=== PATIENT | female | born 1945 | race Caucasian/White ===

== ENCOUNTER → 2017-08-10 10:22 | Outpatient (CLI) | payer MEDICARE ==
[2013-12-23 06:45] VITALS: BMI 26.5
[~2017-08-10 10:22] MED LIST: BAYER CHEWABLE81 MG PO; ESTRACE2 MG PO; METOPROLOL TART50 MG PO; SYNTHROID25 MCG PO; VITAMIN D31000 UNIT PO; VITAMIN E1000 UNIT PO; ZETIA10 MG PO
[2017-08-20 12:32] VITALS: BMI 27.5
== END | disposition home or self-care (01) ==
LOC: D.MRI 10:22
DX: R51 Headache (principal)

== ENCOUNTER → 2017-08-14 08:05 | Outpatient (CLI) | payer MEDICARE ==
[2013-12-23 06:45] VITALS: BMI 26.5
[2017-08-20 12:32] VITALS: BMI 27.5
== END | disposition home or self-care (01) ==
LOC: D.NM 08:00
DX: K29.40 Chronic atrophic gastritis without bleeding (principal)

== ENCOUNTER 2017-08-20 02:41 | Observation (INO) | payer MEDICARE ==
[~2017-08-20] VITALS: Ht 157.5 cm; Wt 68.2 kg
[~2017-08-20 02:41] MED LIST changes: -BAYER CHEWABLE81 MG PO; -METOPROLOL TART50 MG PO; -SYNTHROID25 MCG PO; -ZETIA10 MG PO
[2017-08-20 02:59] LABS: APPEARANCE CLEAR (CLEAR); BILIRUBIN NEGATIVE (NEGATIVE); COLOR YELLOW (YELLOW); GLUCOSE NEGATIVE (NEGATIVE); KETONE NEGATIVE (NEGATIVE); NITRITE NEGATIVE (NEGATIVE); PROTEIN NEGATIVE (NEGATIVE); SPECIFIC GRAVITY 1.015 (1.005-1.020); UROBILINOGEN NORMAL (NORMAL)
[2017-08-20 03:41] LABS: BASOPHILS 0.5 % (0-2); EOSINOPHILS 4.7 % (0-7); HEMOGLOBIN 13.3 g/dL (12-16); IMMATURE GRANULOCYTES 0.2 % (0-5); LYMPHOCYTES 37.7 % (15-50); MCH 29.2 pg (26.0-34.0); MCHC 34.1 g/dL (31.0-37.0); MCV 85.7 fL (80.0-100.0); MEAN PLATELET VOLUME 10.6 fL (7.4-10.4); MONOCYTES 12.6 % (2-11); NEUTROPHILS 44.3 % (40-80); PLATELET COUNT 193 10x3/uL (130-400); RBC 4.55 10x6/uL (4.00-5.40); RDW 12.5 % (11.5-14.5); WBC 4.1 10x3/uL (4.8-10.8)
[2017-08-20 04:04] LABS: ALBUMIN 3.7 g/dL (3.4-5.0); ALKALINE PHOSPHATASE 82 U/L (46-116); ALT (SGPT) 20 U/L (10-68); BILIRUBIN - TOTAL 0.37 mg/dL (0.2-1.3); CALC OSMOLALITY 278 mosm/kg (275-300); CALCIUM 9.7 mg/dL (8.5-10.1); CARBON DIOXIDE 24.3 mmol/L (21.0-32.0); CHLORIDE - SERUM 103 mmol/L (98-107); CREATININE - SERUM 0.8 mg/dL (0.6-1.3); GLUCOSE 110 mg/dL (74-106); LIPASE 111 U/L (73-393); POTASSIUM - SERUM 3.7 mmol/L (3.5-5.1); PRO BNP 62 pg/mL (0-125); PROTEIN - SERUM 7.6 g/dL (6.4-8.2); SODIUM 139 mmol/L (136-145); UREA NITROGEN 12 mg/dL (7-18); eGFR NON AFRICAN AMERICAN 75 mL/min (90-120)
[2017-08-20 04:06] LABS: TROPONIN-I < 0.017 ng/mL (0.000-0.060)
[2017-08-20] MEDS ORDERED: ZETIA10 MG PO (05:29)
--- NOTE | 2017-08-20 05:30 | NUR ---
PT ARRIVED ON UNIT VIA STRETCHER, ESCORTED BY ER NURSE. ORIENTED TO ROOM AND CALL LIGHT. VITALS STABLE. TELEMETRY PLACED PER ORDER, AND PT READING SR AT THIS ASSESSMENT. SIDE RAILS UP X2 FOR SAFETY. CALL LIGHT WITHIN REACH. PT GIVEN COFFEE PER REQUEST.
[2017-08-20 05:44] VITALS: BP 136/67; BMI 27.5
--- NOTE | 2017-08-20 05:54 | NUR ---
ADMISSION ASSESMENT, HISTORY, AND MEDICATION RECONCILLIATION COMPLETE PER FLOWSHEET.
--- NOTE | 2017-08-20 07:48 | NUR ---
REC'D SITTING UP IN BED. ALERT AND ORIENTED X4. DENIED PAIN AT THIS TIME. DENIED NEEDS AT THIS TIME. INSTRUCTED TO CALL IF NEEDED ANYTHING,VERBALIZED UNDERSTANDING. BED LOW, LOCKED, CALL LIGHT IN REACH. WILL CONT TO MONITOR.
[2017-08-20 09:26] VITALS: BP 147/75
--- NOTE | 2017-08-20 11:03 | NUR ---
DENIES ANY NEEDS AT THIS TIME.
[2017-08-20 12:32] VITALS: Ht 157.5 cm; Wt 68.2 kg
[2017-08-20 13:11] VITALS: BP 148/73
[2017-08-20 16:54] VITALS: BP 159/82
--- NOTE | 2017-08-20 19:11 | NUR ---
RECEIVED REPORT COMPLETED FROM DAY SHIFT NURSE.
[2017-08-20 20:00] VITALS: BP 128/64
[2017-08-20 22:01] VITALS: BP 128/64
--- NOTE | 2017-08-20 22:27 | NUR ---
EDUCATED PT TO USE CALL LIGHT WHEN NEED HELP, PT UNDERSTAND THE EDUCATION.
--- NOTE | 2017-08-21 02:10 | NUR ---
REST IN BED, EYE CLOSE, CALL LIGHT IN REACH.
--- NOTE | 2017-08-21 03:30 | NUR ---
ASSESSED, PT IS ASLEEP WITH EASY RESPIRATIONS, NO DISTRESS NOTED. THE BED IS LOW, RAILS UP X'S 2 WITH THE CALL LIGHT AT HAND.
[2017-08-21 04:00] VITALS: BP 102/54
--- NOTE | 2017-08-21 07:35 | NUR ---
REC'D SITTING UP IN BED. ALERT AND ORIENTED X4. DENIED PAIN AT THIS TIME. REPORTED HAVING A GOOD NIGHT. DENIED NEEDS AT THIS TIME. INSTRUCTED TO CALL IF NEEDED ANYTHING, VERBALIZED UNDERSTANDING. NO DISTRESS NOTED. BED LOW, LOCKED, CALL LIGHT IN REACH.
[2017-08-21 09:36] VITALS: BP 125/63
--- NOTE | 2017-08-21 10:24 | NUR ---
RESTING QUIETLY. DENIES ANY NEEDS AT THIS TIME.
[2017-08-21] MEDS ORDERED: SYNTHROID25 MCG PO (11:54)
[2017-08-21] MEDS ORDERED: METOPROLOL TART50 MG PO (11:54)
[2017-08-21] MEDS ORDERED: BAYER CHEWABLE81 MG PO (11:55)
[2017-08-21 12:08] LABS: BASOPHILS 0.6 % (0-2); HEMATOCRIT 37.6 % (36.0-48.0); HEMOGLOBIN 12.6 g/dL (12-16); IMMATURE GRANULOCYTES 0.2 % (0-5); LYMPHOCYTES 37.6 % (15-50); MCHC 33.5 g/dL (31.0-37.0); MCV 86.6 fL (80.0-100.0); MEAN PLATELET VOLUME 11.2 fL (7.4-10.4); MONOCYTES 11.8 % (2-11); NEUTROPHILS 46.8 % (40-80); RBC 4.34 10x6/uL (4.00-5.40); RDW 12.7 % (11.5-14.5)
[2017-08-21 12:36] LABS: ALBUMIN 3.2 g/dL (3.4-5.0); ALKALINE PHOSPHATASE 80 U/L (46-116); ALT (SGPT) 20 U/L (10-68); BILIRUBIN - TOTAL 0.35 mg/dL (0.2-1.3); CALC OSMOLALITY 272 mosm/kg (275-300); CARBON DIOXIDE 25.1 mmol/L (21.0-32.0); CHLORIDE - SERUM 103 mmol/L (98-107); CREATININE - SERUM 0.8 mg/dL (0.6-1.3); GLUCOSE 88 mg/dL (74-106); PROTEIN - SERUM 6.8 g/dL (6.4-8.2); SODIUM 137 mmol/L (136-145); UREA NITROGEN 12 mg/dL (7-18); eGFR NON AFRICAN AMERICAN 75 mL/min (90-120)
[2017-08-21 12:49] VITALS: BP 116/61
--- NOTE | 2017-08-21 13:36 | NUR ---
IS BEING DISCHARGED. WENT OVER DISCHARGE PAPERWORK WITH HER, SHE VERBALIZED HER UNDERSTANDING. INSTRUCTED HER ON THE USE OF HER PERSCRIPTIONS, SHE VERBALIZED UNDERSTANDING. WILL DC IV TO RIGHT HAND, WHEN SON GETS HERE.
[2017-08-21 14:15] LABS: WBC 5.3 10x3/uL (4.8-10.8)
[2017-08-21 14:16] LABS: PLATELET COUNT 195 10x3/uL (130-400)
--- NOTE | 2017-08-21 14:16 | NUR ---
DC'D IV TO RIGHT HAND, CATHETER STILL INTACT. PATIENT TOLERATED WELL
--- NOTE | 2017-08-21 14:21 | HP ---
PATIENT: CASSANDRA KEITH MEDICAL RECORD: [id number] ACCOUNT: [id number] LOCATION:D.MS [id number] : 46 ADMISSION DATE: 08/20/17 HISTORY AND PHYSICAL EXAMINATION HISTORY: A 72-year-old white female who was admitted to the hospital for evaluation of dizziness. The patient states that she has had dizziness for the last several days, worse at night. Whenever she lies flat, she has vertigo that is taking place and feels a throbbing in the back of her head. Her blood pressure has been elevated up to 220/100. Several medications have been utilized to help on this. PAST MEDICAL HISTORY: Significant for vertigo, hypertension, dizziness, former nicotine use, hyperlipidemia, and myalgia. PAST SURGICAL HISTORY: Includes tonsillectomy, hysterectomy, and vein stripping. SOCIAL HISTORY: The patient does not smoke at the present time. No alcohol use. ALLERGIES: SHE IS ALLERGIC TO CODEINE. MEDICATIONS: She does take medications as listed in the MAR sheet. REVIEW OF SYSTEMS: Occasional fever and chills. No chest pain. No shortness of breath. No weakness in the extremities. Some dizziness and nausea followed with this. PHYSICAL EXAMINATION: VITAL SIGNS: Vital signs at the time of history and physical as below. GENERAL: She is a well-developed and well-nourished pleasant 72-year-old white female, in no acute distress. HEENT: Normocephalic and atraumatic. Pupils are equal, round, and reactive to light. Extraocular movements are intact. Oral cavity and oropharynx are otherwise clear. NECK: No cervical or pharyngeal adenopathy. No nuchal rigidity. LUNGS: Occasional coarse breath sounds but clear. HEART: Regular rate and rhythm with I/ systolic ejection murmur. ABDOMEN: Soft and nontender. Positive bowel sounds. No hepatosplenomegaly. No masses. EXTREMITIES: No edema is noted. Mild arthritic changes are noted. NEUROLOGIC: Cranial nerves II-XII are grossly intact. Muscle strength to upper and lower extremities 5/5. Sensory is intact. ASSESSMENT: 1. Vertigo. 2. Labile hypertension. 3. Atypical headache. PLAN: The patient will be admitted to the hospital for 23-hour observation. Cardiology evaluation will be obtained. Hydralazine as needed, Valium as needed, and scheduled dosing of meclizine. We will check laboratory appropriately. HISTORY AND PHYSICAL [id number] CASSANDRA KEITH TRANSINT:[id number] Voice Confirmation ID: [id number] DOCUMENT ID: [id number] FRANCESCA PEREZ MD at 1421 CC: [id number] DICTATION DATE: 08/20/17 1035 WEB SERVICES PROFESSIONAL: 08/20/17 1656 ADM IN [place] [id number] [place] [address]
--- NOTE | 2017-08-30 13:53 | EC ---
PATIENT:CASSANDRA KEITH DATE OF SERVICE: 08/20/17 SEX: F MEDICAL RECORD: [id number] DATE OF : 47 LOCATION:D.MS [facility] AGE OF PATIENT: 72 ADMISSION DATE: 08/20/17 REFERRING PHYSICIAN: INTERPRETING PHYSICIAN: SHAN GONZALEZ MD ECHOCARDIOGRAM REPORT ECHO CHARGES 4 ECHO COMPLETE CLINICAL DIAGNOSIS: HTN ECHOCARDIOGRAPHIC MEASUREMENTS (adult normal given) AC root (d.<3.7cm) 3.2 cm LV Septum d (<1.2 cm> 1.2 cm Valve Excursion 1.5 cm LV Septum (systole) 1.4 cm Left Atria (s.<4.0cm> 3.4 cm LVPW d(<1.2cm) 1.3 cm RV (d.<2.3cm) cm LVPW (sytole) 1.5 cm LV diastole(<5.6CM) 4.5 cm MV E-F(>70mm/sec) cm LV systole 3.0 cm LVOT Diameter 1.8 cm MV exc.(>10mm) cm Est.ejection fraction (50-75%) % Pericardial Effusion N DOPPLER: LVIT cm/sec A 101 cm/sec E 59.0 cm/sec LA cm/sec RVSP 21 mmHg LVOT 98 cm/sec AOP1/2T m/s Asc. Ao 131 cm/sec RVOT 95 cm/sec RA cm/sec PA 127 cm/sec AV Gradient Peak 6.86 mmHg AV Mean 2.99 mmHg AV Area 1.8 cm MV Gradient Peak 5.94 mmHg MV Mean 2.78 mmHg MV Area cm COMMENTS: [facility] Director: 2 RACIEL SINHA Medical Lab Assistant: Luis Gonzalez TAPE# PACS DATE OF SERVICE: 08/20/2017 PROCEDURE: Transthoracic echocardiogram. FINDINGS: 1. The patient has evidence of mild left ventricular hypertrophy with inflow characteristics consistent with diastolic dysfunction and ejection fraction of 65% to 70%. There are no significant regional wall motion abnormalities. 2. The left atrium is normal size, normal function. 3. The mitral valve is normal. ECHOCARDIOGRAM REPORT [id number] CASSANDRA KEITH 4. The tricuspid valve is normal with normal right ventricular systolic pressures. 5. The pulmonic valve is normal. 6. The right atrium is mildly dilated. 7. The right ventricle is mildly dilated. CONCLUSIONS: The patient has evidence of left ventricular hypertrophy with preserved LV systolic function, evidence of diastolic dysfunction. TRANSINT:[id number] Voice Confirmation ID: [id number] DOCUMENT ID: [id number] 08/28/2017 Edited to correct date of service, dmm. SHAN GONZALEZ MD at 1353 CC: [id number] DICTATION DATE: 08/21/17 1125 HOTEL ATTENDANT: 08/21/17 1212 DIS IN 08/21/17 [id number] [place] [address]
== END 2017-08-21 14:40 | disposition home or self-care (01) ==
LOC: D.ER 02:41 → D.MS 04:50 → OBSVTIME 04:50 → D.MS 08-21 14:40
PROVIDERS: Family Medicine; ADMIT Emergency Medicine
DX: I16.0 Hypertensive urgency (principal); R42 Dizziness and giddiness; E78.5 Hyperlipidemia, unspecified; R51 Headache; M79.1 Myalgia; I65.22 Occlusion and stenosis of left carotid artery; Z87.891 Personal history of nicotine dependence

== ENCOUNTER 2019-01-17 13:28 | Inpatient (IN) | payer MEDICARE, MEDICAID ==
[~2019-01-17] VITALS: Ht 157.5 cm; Wt 69.6 kg
--- NOTE | ~2019-01-17 | PN ---
PATIENT:CASSANDRA KEITH MEDICAL RECORD: [id number] LOCATION:KRISTYN [facility] ADMISSION DATE: 01/17/19 PROGRESS NOTE DATE OF SERVICE: 01/25/2019 SUBJECTIVE: Ms. Keith is a 73-year-old female, who was admitted secondary to delusions, primarily of erotomanic variety. She believes the local physician was going to her. Although she has come off that, she still believes that she was meeting an FBI agent. She is very vague on some aspects of her presentation and has gotten increasingly irritable with me in particular as she is frustrated that I do not believe her. Nursing has repeatedly seen her respond to internal stimuli. She did sleep well at 8.5, eating 195% and 100%. Last bowel movement on . OBJECTIVE: VITAL SIGNS: 98.2, 72, 21, 53/73, and 97%. ASSESSMENT: Unchanged. PLAN: Continue Risperdal 2 mg p.o. at bedtime, wait for response. Would gradually increase that dosing until some degree of better response is seen. Continue to encourage son to apply for guardianship. Case discussed with nursing. Chart was reviewed and the patient interviewed. TRANSINT:[id number] Voice Confirmation ID: [id number] DOCUMENT ID: [id number] WOOD RAMIREZ MD CC: [id number] DICTATION DATE: 01/25/19723 PRESCHOOL TEACHER ASSISTANT: 01/25/19 1419 ADM IN [facility] [address] [place] [address]
[~2019-01-17 13:28] MED LIST changes: +BAYER CHEWABLE81 MG PO; +METOPROLOL TART50 MG PO; +SYNTHROID25 MCG PO; +ZETIA10 MG PO
[2019-01-17 14:34] LABS: BASOPHILS 0.4 % (0-2); EOSINOPHILS 2.3 % (0-7); HEMATOCRIT 38.1 % (36.0-48.0); HEMOGLOBIN 12.9 g/dL (12-16); LYMPHOCYTES 33.1 % (15-50); MCH 29.5 pg (26.0-34.0); MCHC 33.9 g/dL (31.0-37.0); MCV 87.2 fL (80.0-100.0); MEAN PLATELET VOLUME 10.9 fL (7.4-10.4); MONOCYTES 8.5 % (2-11); NEUTROPHILS 55.7 % (40-80); PLATELET COUNT 211 10x3/uL (130-400); RBC 4.37 10x6/uL (4.00-5.40); RDW 12.9 % (11.5-14.5); WBC 5.3 10x3/uL (4.8-10.8)
[2019-01-17 14:41] LABS: UDS - AMPHET NEGATIVE QUAL (NEGATIVE); UDS - BARB NEGATIVE QUAL (NEGATIVE); UDS - BENZO NEGATIVE QUAL (NEGATIVE); UDS - COCAINE NEGATIVE QUAL (NEGATIVE); UDS - OPIATE NEGATIVE QUAL (NEGATIVE); UDS - PCP NEGATIVE QUAL (NEGATIVE); UDS - THC NEGATIVE QUAL (NEGATIVE)
[2019-01-17 14:42] LABS: APPEARANCE CLEAR (CLEAR); COLOR YELLOW (YELLOW)
[2019-01-17 14:43] LABS: BILIRUBIN NEGATIVE (NEGATIVE); GLUCOSE NEGATIVE (NEGATIVE); KETONE NEGATIVE (NEGATIVE); NITRITE NEGATIVE (NEGATIVE); PROTEIN NEGATIVE (NEGATIVE); UROBILINOGEN NORMAL (NORMAL)
[2019-01-17 14:50] LABS: ALBUMIN 3.8 g/dL (3.4-5.0); ALKALINE PHOSPHATASE 71 U/L (46-116); ALT (SGPT) 19 U/L (10-68); BILIRUBIN - TOTAL 0.61 mg/dL (0.2-1.3); CALC OSMOLALITY 277 mosm/kg (275-300); CARBON DIOXIDE 26.7 mmol/L (21.0-32.0); CHLORIDE - SERUM 103 mmol/L (98-107); CREATININE - SERUM 0.7 mg/dL (0.6-1.3); GLUCOSE 87 mg/dL (74-106); POTASSIUM - SERUM 3.5 mmol/L (3.5-5.1); SODIUM 139 mmol/L (136-145); UREA NITROGEN 16 mg/dL (7-18); eGFR NON AFRICAN AMERICAN 87 mL/min (90-120)
[2019-01-17 14:51] LABS: MAGNESIUM - SERUM 1.9 mg/dL (1.8-2.4)
--- NOTE | 2019-01-17 15:27 | NUR ---
PT STATES THAT SHE DOESN'T NEED TO BE IN THE ER. STATES THAT HER CHILDREN BROUGHT HER HERE BECAUSE THEY THINK SHE IS CRAZY, BUT SHE ISN'T. PT STATES SHE HAS A FRIEND THAT IS AN FBI AGENT. PT HAD PLANS TO MEET HER FRIEND IN [place], [place] AT A HOTEL ON SUNDAY. PT STATES SHE WAS DRIVING IN THE DARK AND BECAME LOST. DENIES BEING DISORIENTED. PT STATES HER PHONE RANG WHILE SHE WAS DRIVING AT 2AM AND A VOICE ON THE OTHER END TOLD HER THAT HER SON WAS WAITING AT THE HOTEL THAT SHE WAS SUPPOSED TO MEET HER FRIEND AT. PT STATES SHE CALLED HER SON FOR DIRECTIONS TO THE HOTEL ET HE BECAME AGITATED WITH HER. SON AND DAUGHTER PRESENT PAPER WORK SIGNED BY DR. ORO STATING PT HAS HAD BIZARRE AND UNPREDICTABLE BEHAVIOR RECENTLY ET HE RECOMMENDS PT BE PLACED IN A PSYCH FACILITY. PER PT SON/DAUGHTER, PT HAS DEVELOPED A FACINATION WITH DR. JAC UNGER. PT BELIEVES THAT SHE IS IN A RELATIONSHIP WITH DR. UNGER AND THE UNGER FAMILY HAS HAD TO CALL POLICE WHEN PT WAS FOUND ON THE GROUNDS OF THEIR FAMILY HOME. SON/DAUGHTER ALSO SHOW PAPERWORK THAT PT HAS SIGNED HER NAME IF SHE IS TO DR. UNGER. THIS BEHAVIOR IS UPSETTING TO THE UNGER FAMILY, PER SON/DAUGHTER. SON/DAUGHTER LEAVE PT IN ED ET REPORT ARE GOING TO [facility] TO OBTAIN GUARDIANSHIP PAPERWORK.
[2019-01-17 15:55] LABS: APTT 25.6 SECONDS (22.8-39.4); INR 1.08 (0.85-1.17); PROTIME 13.5 SECONDS (11.6-15.0)
[2019-01-17 16:06] LABS: CHOL - HDL RATIO 3.9 ratio (2.3-4.1); LDL-HDL RATIO 2.5 ratio (1.5-3.5); THYROID STIMULATING HORMONE 3.74 uIU/mL (0.36-3.74)
--- NOTE | 2019-01-17 18:13 | NUR ---
DR BARKSDALE SIGNS 72 HOUR HOLD ON PATIENT FOR PSYCHOTIC BEHAVIORS. RIGHTS READ TO PATIENT ET REQUESTED PT TO SIGN. PT REQUESTED RIGHTS BE READ A SECOND TIME, RIGHTS WERE READ A SECOND TIME. PT SIGNS FORM. FORM SIGNED BY THIS RN AND DR. BARKSDALE ET FAXED TO [facility] OFF[facility].
--- NOTE | 2019-01-17 18:16 | NUR ---
PT DAUGHTER MARIE SMITH [phone]. [facility] CAN CALL AT ANYTIME FOR ANY REASON.
[2019-01-17 20:10] VITALS: BP 175/73
--- NOTE | 2019-01-18 03:08 | NUR ---
PATIENT ARRIVED AT 19:30 FROM OUR E.D., CODE WORD IS ALYCIA, CODE STATUS IS FULL CODE, CONSENTS SIGNED, CALM AND COOPERATIVE, PATIENT HAS PURSE AND WALLET THAT NEED TO BE LOCKED UP, [address] VILLA, DELUSIONAL AND GRANDIOSE, THINKS SHE IS MARRYING DR UNGER, WILL CONTINUE TO MONITOR.
[2019-01-18 03:26] VITALS: BP 175/73; BMI 29.3
[2019-01-18 04:55] LABS: APPEARANCE CLEAR (CLEAR); BILIRUBIN NEGATIVE (NEGATIVE); COLOR YELLOW (YELLOW); GLUCOSE NEGATIVE (NEGATIVE); KETONE NEGATIVE (NEGATIVE); NITRITE NEGATIVE (NEGATIVE); PROTEIN NEGATIVE (NEGATIVE); UROBILINOGEN NORMAL (NORMAL)
[2019-01-18 07:30] VITALS: BP 154/73
--- NOTE | 2019-01-18 10:40 | NUR ---
The patient asked to go to her room to go put her lipstick on. Did let her know that I could go get it for her. She did tell me her black and white bag was by the sink and her lipstick is in there. While getting the lipstick did take tweezers, toenail clippers, scissors, and a compact mirror out of her little bag and put it in a clear bag with her name on it and put it in her red purse in case she needs to use any of the items. She does have her lipstick now.
--- NOTE | 2019-01-18 12:24 | NUR ---
The patient's daughter Eder called and asked "How is my Mom?" Did have to get permission from the patient to give the daughter her code word. Her code word is "Joan." The patient's daughter said "You know why she is there don't you?" She is said "She told us she had to drive to [place] to meet an FBI agent to get the millions of dollars that are hers and Dr. Luther's." Eder, the dtr. went onto explain that her Mother has three sisters and all of them have a mental illness, and she said she also has bipolar with depressive disorder. Lashonda states that her Mother denies having any mental illness. She says her Mother believes that Dr. Luther is being held hostage and that is why they are not together because he would never do that to her. She also says "Don't tell her I said anything, but do tell her that I called and I love her."
--- NOTE | 2019-01-18 13:47 | NUR ---
The patient is now beginning to display some of her bizarre behavior. She is sitting on the couch looking at magazines, she is sitting away from other patients and she is carrying on a conversation with an unseen other. She also was staring at the face of the person on the magazine for a very long time until staff walked over to her then she looked up and smiled. She is pleasant and oriented x3.
[2019-01-18 14:04] VITALS: BMI 29.2
[2019-01-18 20:07] VITALS: BP 158/71
--- NOTE | 2019-01-18 21:50 | NUR ---
B) Patient is alert and oriented to person, place and time, does not understand situation, delusional, I) Administered scheduled medications as ordered, monitored for safety R) Mediation compliant, cooperative P) Continue plan of care.
[2019-01-19 07:00] VITALS: BP 159/76
--- NOTE | 2019-01-19 10:00 | NUR ---
RECEIVED PATIENT IN DINING ROOM FOR B'FAST, ALERT, CALM, COOPERATIVE, ORIENTED BUT QUITE DELUSIONAL. MEDS ADMIN PER ORDERS WITH COMPLETE MED COMPLIANCE NOTED. COOPERATIVE WITH STAFF AND GROUP ACTIVITY. CONT POC INCLUDING MEDS AND GROUP THERAPY DIRECTED.
--- NOTE | 2019-01-19 18:13 | NUR ---
PATIENT SITTING ON SOFA TALKING TO UNSEEN OTHERS.
[2019-01-19 19:59] VITALS: BP 178/78
--- NOTE | 2019-01-19 21:36 | NUR ---
RECEIVED IN DAYROOM. EXIT SEEKING. COOPERATIVE WITH CARE AND ASSESSMENT. YELLING AND CURSING AT STAFF TO OPEN UNLOCK THE DOORS. REDIRECT AND REORIENT NEEDED. RESTING IN BED WITH EYES CLOSED AT THIS TIME. CONTINUE PLAN OF CARE.
[2019-01-20 03:05] LABS: FOLATE (FOLIC ACID) - SERUM 8.9 ng/mL (>3.0)
[2019-01-20 08:29] VITALS: BP 160/68
--- NOTE | 2019-01-20 10:00 | NUR ---
PATIENT IS ALERT AND ORIENTED TO PERSON, PLACE AND TIME, BUT NOT SITUATION. NO DELUSIONS NOTED AT THIS TIME. CALM AND COOPERATIVE WITH CARE AND ASSESSMENT. ADMINISTER SCHEDULED MEDICATIONS. COMPLIANT WITH MEDS. WILL CONTINUE PLAN OF CARE.
[2019-01-20 10:29] VITALS: Ht 157.5 cm; Wt 69.6 kg
[2019-01-20 22:23] VITALS: BP 156/74
--- NOTE | 2019-01-20 22:34 | NUR ---
RECEIVED IN PATIENT ROOM. RESTING IN BED WITH EYES OPEN. CALM AND COOPERATIVE WITH CARE AND ASSESSMENT. NO DELUSIONAL OR GRANDIOSE STATEMENTS. REDIRECT AND REORIENT NEEDED. RESTING IN BED WITH EYES CLOSED AT THIS TIME. CONTINUE PLAN OF CARE.
[2019-01-21 08:00] VITALS: BP 176/69
--- NOTE | 2019-01-21 17:00 | PSY ---
PATIENT NAME:CASSANDRA KEITH MEDICAL RECORD: [id number] : 47 LOCATION:KRISTYN Ara3 ADMISSION DATE: 01/17/19 ACCOUNT: [id number] PSYCHIATRIC EVALUATION DATE OF EVALUATION: 01/18/19 HISTORY OF PRESENT ILLNESS: Ms. Keith is a 73-year-old female who was admitted secondary to bizarre behavior. She apparently had been going to a local physician, Dr. Howard Luther, telling him that she is ready to get . She recently drove to [place] by report either to meet an FBI agent there in some reports and then in others, so she can meet Dr. Luther to live there with him. The patient apparently having driven all night, had run out of gas, called her son, and that is how son became aware and Dr. Luther because of these behaviors has informed the hospital, a 72-hour hold was placed. On interview today, the patient minimizes all this, she says for vague reasons she did not explain that she was driving to [place], [place] but did not know that she was in [place], [place]. She stopped at a hotel and she had received a prank call saying that her son was at the hotel and when she called her son, he became angry because he was not at the hotel, working in [place], [place]. When I asked her about wanting to Dr. Luther, she said that was absolutely not true and that she did not do that and she minimizes any involvement with the FBI. She has no insight into her reported behaviors. She denies any psychiatric history. She denies suicidal or homicidal ideations. She denies auditory or visual hallucinations. She does have some degree of hyperreligiosity about her but denies any special meza per se. PAST PSYCHIATRIC HISTORY: The patient denies; however, a nursing conversation with daughter, apparently, the patient has had a long history of bipolar disorder, manic with psychotic features that she has lacked insight to and has refused to have treated but has never been admitted before. When I asked the patient about perhaps depressive episodes, she states she had been down before but never suicidal. PAST MEDICAL HISTORY: Per problem list. The patient reports she has thyroid problem that she quit her levothyroxine in the past month because she just did not feel like she needed it anymore. Noted that her TSH is still within normal limits at 3.74 and the patient reports hypertension, which she states she has also quit taking in the last month because she was not hyper. Carotid stenosis, myalgia, vertigo, and hyperlipidemia, again which she had quit taking because she felt like she was exercising and eating right and did not need any more. Menopause and vitamin D deficiency. 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 She states she lives by herself. DRUGS AND ALCOHOL: The patient absolutely denies the use of drugs or alcohol now or ever. FAMILY HISTORY: The patient denies but according to the patient's daughter the patient has 3 sisters and all of them have had some sort of severe mental health history. MENTAL STATUS EXAMINATION: This is a 73-year-old female noted to have makeup on. She is cooperative with interview. Her eye contact is good. No psychomotor agitation or retardation. Her speech is regular rate and rhythm. Her mood is great with affect but overly bright for the situation. Her thought process is ____, relevant, and goal directed. Her thought content - she denies suicidal or homicidal ideation, auditory or visual hallucinations. No overt delusions but certainly confused. Her latest vitals are 97.9, 70, 16, 154/73, 97%. She slept 7-1/2 hours last night. ASSESSMENT AND PLAN: Bipolar disorder, manic with psychotic features, hypertension, carotid stenosis, history of hypothyroidism, hypertension, menopause, myalgia. Admit to [facility] under 72-hour hold. We will continue to monitor behaviors. Get further information from the family as to the full extent of her past behaviors and particular family history and perhaps any medications she has been prescribed. The patient was adamant that she does not agree with any psychotropics and certainly not at this point. We will continue to monitor sleep, appetite, thought process to see to what degree ____ clears and then develop a somewhat therapeutic martell with the patient, so she might consider psychotropic medications voluntarily. Apparently, the patient's family is according to family practice note considering guardianship of the patient. Case discussed with nursing. Chart was reviewed and the patient interviewed. TRANSINT:[id number] Voice Confirmation ID: [id number] DOCUMENT ID: [id number] WOOD RAMIREZ MD at 1700 CC: [id number] DICTATION DATE: 01/18/19 1301 PLANT OPERATIONS COORDINATOR: 01/18/192039 ADM IN [id number] [place] [address]
--- NOTE | 2019-01-21 17:00 | PN ---
PATIENT:CASSANDRA KEITH MEDICAL RECORD: [id number] LOCATION:KRISTYN Silke112 ADMISSION DATE: 01/17/19 PROGRESS NOTE DATE OF SERVICE: 01/20/2019 SUBJECTIVE: Ms. Keith is a 73-year-old female brought in by her family for reportedly bizarre behaviors under 72-hour hold. She apparently has shown up at a local physician's house rather saying that she was going to him and has apparently driven to [place] at least twice to "live with Dr. Luther." The story she gave me was quite bizarre about an FBI agent and someone calling her saying her son was there. On interview today, I discussed these facts and the patient became very upset. She has no insight into her previous behavior. She believes that Dr. Luther, there are two Dr. Cam which is the explanation of why this is happening. Nursing notes that she has been responding to internal stimuli at times. She slept 7.75 hours, eating 25, 90, and 100%. Last bowel movement on 01/19/2019. OBJECTIVE: Her latest vital signs are 98.1, 67, 18, 160/68, and 100. ASSESSMENT: Unchanged. PLAN: I have discussed with her and she has given consent at this point for Andry. Notably, however, part of her presentation is that she has been not taking some of her meds at times. Today, she apparently refused her cholesterol drugs despite the fact she does have hyperlipidemia and did have on admission and making decisions not in her own medical best interest. However, at this moment, she has given consent for Andry and will start that for dolly. Case discussed with nursing, chart reviewed, and patient interview. TRANSINT:[id number] Voice Confirmation ID: [id number] DOCUMENT ID: [id number] WOOD RAMIREZ MD at 1700 CC: [id number] DICTATION DATE: 01/20/19 9995 HEAD LIBRARIAN: 01/21/19 0420 ADM IN [place] [id number] [place] [id number]
--- NOTE | 2019-01-21 18:20 | NUR ---
PATIENT IS AWAKE AND ALERT TO SELF, PLACE AND TIME AND SITUATION. CALM AND COOPERATIVE WITH CARE AND ASSESSMENT. PROVIDE PRESCRIBED MEDS. COMPLIANT WITH MEDICATIONS. WILL CONTINUE POC.
[2019-01-21 19:48] VITALS: BP 154/73
--- NOTE | 2019-01-21 21:43 | NUR ---
RECEIVED IN BEDROOM. RESTING IN BED WITH EYES CLOSED. RESPONDS TO VOICE. ENCOURAGE TO EXPRESS NEEDS. CONTINUES TO REST QUIETLY IN BED. CONTINUE PLAN OF CARE
[2019-01-22 07:18] LABS: RAPID PLASMA REAGIN Non Reactive (Non Reactive)
[2019-01-22 07:42] VITALS: BP 130/58
--- NOTE | 2019-01-22 11:00 | NUR ---
PATIENT IS AWAKE AND ALERT TO PERSON, PLACE AND TIME. CALM AND COOPERATIVE WITH CARE AND ASSESSMENT. ADMINISTER PRESCRIBED MEDICATIONS. COMPLIANT WITH MEDS. NO HALLUCINATIONS OR DELUSIONS NOTED. WILL CONTINUE PLAN OF CARE.
[2019-01-22 20:00] VITALS: BP 176/71
--- NOTE | 2019-01-22 23:04 | NUR ---
RECEIVED IN HALLWAY OUTSIDE OF NURSES STATION. RESTING IN RECLINER WITH EYES OPEN. CALM AND COOPERATIVE WITH CARE AND ASSESSMENT. PATIENT TALKING TO UNSEEN PEOPLE THIS EVENING. REDIRECT AND REORIENT NEEDED. RESTING IN BED WITH EYES CLOSED AT THIS TIME. CONTINUE PLAN OF CARE.
[2019-01-23 07:47] VITALS: BP 158/65
--- NOTE | 2019-01-23 09:00 | NUR ---
PATIENT CALM AND ALERT FOR B'FAST, APPETITE GOOD. NO HALLUCINATIONS NOTED. MEDS ADMIN PER ORDERS WITH COMPLETE MED COMPLIANCE NOTED. COOPERATIVE WITH STAFF AND GROUP THERAPY. CONT POC INCLUDING MEDS AND GROUP THERAPY DIRECTED.
--- NOTE | 2019-01-23 14:01 | NUR ---
Nutrition follow-up: Diet: Regular PO intake 75-100% of meals Labs reviewed Wt: 153# +BM RDN following.
[2019-01-23 20:20] VITALS: BP 152/70
--- NOTE | 2019-01-23 21:49 | NUR ---
B) patient is alert and oriented to person, place and time, cooperative and calm, I) Administered scheduled medications as ordered, monitored fr behaviors, R) mediation compliant, quiet and watching TV, P) Continue plan of care.
[2019-01-24 07:36] VITALS: BP 162/65
--- NOTE | 2019-01-24 11:00 | NUR ---
The patient is awake and alert and she is pleasant, she is oriented x3. SHe is seen speaking to her unsee others. She stops when approached and can carry on a perfect conversation. She ambulates independently. I) Provide prescribed meds and encourage groups. R) The patient is compliant with meds and unit milieu. P) Continue POC.
--- NOTE | 2019-01-24 14:20 | NUR ---
The patient continues to try to flip the table over in the day room, she is getting angry telling staff they are going to get it. "The time will come." She is spitting and exit seeking. Cursing, screaming at the top of her lungs, upsetting all of the other staff. Did provide Ativan 0.5 mg and Haldol 2 mg IM in her right arm.
[2019-01-24 20:00] VITALS: BP 163/73
--- NOTE | 2019-01-24 22:46 | NUR ---
B) Patient is alert and oriented to person, place and time, delusional at times, seen talking to herself at times, I) Administered scheduled medications as ordered, monitored for safety, R) Mediation compliant, resting quietly in her room now, P) Continue plan of care.
[2019-01-25 08:40] VITALS: BP 149/50
--- NOTE | 2019-01-25 08:51 | PN ---
PATIENT:CASSANDRA KEITH MEDICAL RECORD: [id number] LOCATION:[facility] ADMISSION DATE: 01/17/19 PROGRESS NOTE DATE OF SERVICE: 01/24/2019 SUBJECTIVE: Ms. 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 The patient is not hyperverbal. She is sleeping well. She is not necessarily grandiose, and outside of her encapsulated delusions she is fairly rational. She today, refused to talk to me, saying that since I did not believe her she had nothing else to say. She continues, according to nursing, to respond to internal stimuli and now even escalating into putting a cover over her head doing so. She slept 8.25 hours; 100, 95 and 100%. Last bowel movement was on the 30th. OBJECTIVE: LATEST VITAL SIGNS: 97.9, 60, 16, 162/55, 98%. ASSESSMENT: Unchanged. PLAN: We will increase her Risperdal from 1-2 mg. If indeed it is delusional disorder, higher milligram doses usually have to be employed to see any effect. Apparently, her son is working towards guardianship, considering the patient's other lack of insight, some kind of a guardianship will be necessary. Case discussed with nursing, chart reviewed, and the patient interviewed. TRANSINT:[id number] Voice Confirmation ID: [id number] DOCUMENT ID: [id number] WOOD RAMIREZ MD at 0851 CC: [id number] DICTATION DATE: 01/24/19 1406 HEAT TREAT WORKER: 01/24/19 1510 ADM IN [facility] [address] [place] [address]
--- NOTE | 2019-01-25 08:51 | PN ---
PATIENT:CASSANDRA KEITH MEDICAL RECORD: [id number] LOCATION:[facility]112 ADMISSION DATE: 01/17/19 PROGRESS NOTE DATE OF SERVICE: 01/23/2019 SUBJECTIVE: Ms. Keith is a 73-year-old female who had been brought into the hospital after she had gone to a local physician's house with the belief that she was going to him. She minimizes and denies that, but even on interview and information just obtained from her, she continues to believe that she was going to [place] to meet an FBI agent. She does not give a solid reason why she believes an FBI agent would want to be meeting her nor the logic of how she came to believe that. Apparently, she had run out of gas in [place] and called her son and that is how he became involved. The patient still lacks any insight into this. Nursing has noted her as well of responding to internal stimuli and it gets worse as the days go on. She slept 8 hours last night; eating 100%, 100%, and 75%. Last bowel movement on . Her latest vital signs are temperature 98.1, pulse 58, respiratory rate 21, blood pressure 58/65, and saturation 99%. ASSESSMENT: Unchanged. PLAN: Continue to monitor on Risperdal 1 mg as it is a more potent direct D2 tona. If the patient is tolerating it well and still see no movement on her delusions, we will consider moving up to 2 mg soon. Apparently, son is looking at getting guardianship which, unfortunately, I believe, will be necessary considering the patient's lack of insight into her recent behaviors and by report of long-standing mental illness. Case was discussed with nursing. Chart was reviewed and the patient was interviewed. TRANSINT:[id number] Voice Confirmation ID: [id number] DOCUMENT ID: [id number] WOOD RAMIREZ MD at 0851 CC: [id number] DICTATION DATE: 01/23/19 1206 SWING TENDER: 01/23/19 1239 ADM IN [place] [place] [address]
--- NOTE | 2019-01-25 08:51 | PN ---
PATIENT:CASSANDRA KEITH MEDICAL RECORD: [id number] LOCATION:[facility] ADMISSION DATE: 01/17/19 PROGRESS NOTE DATE OF SERVICE: 01/22/2019 SUBJECTIVE: Ms. Keith is a 73-year-old female who was admitted after she had apparently gone to a local physician in [facility] house, Dr. Howrad Luther, believing that they were getting . Today, the patient has been very suspicious of anything told to her from the outside, so today we rediscussed something she told me in the beginning of why she went to [place]. She says now that she got a call from a random mysterious person, then FBI agent wanted to meet her in [place]. However, once she got there, the FBI agent did not meet her. We discussed the logic of driving to another city on notice from a call from someone she did not know or could not verify. She got increasingly upset as she was confronted with the logic of this, but could not explain it. Nursing reports and I did witness myself today, the patient responding to internal stimuli. She slept 9 hours, ate no breakfast, but 100% lunch and dinner and last bowel movement was on . Her lastest vital signs are 98.1, 61, 18, 130/58 and 99%. ASSESSMENT: Unchanged. PLAN: The patient has been taking Geodon; however, I feel like considering the intractableness of her delusions and apparently it has been longstanding, although worsened lately, we will discontinue Geodon and change to Risperdal. I feel like that has a more direct D2 blocking effect and we will see if it may have hopefully a better effect on the patient's continuing delusions. Case discussed with nursing. Chart reviewed and patient interviewed. TRANSINT:[id number] Voice Confirmation ID: [id number] DOCUMENT ID: [id number] WOOD RAMIREZ MD at 0851 CC: [id number] DICTATION DATE: 01/22/191752 TECHNICIAN SUPPORT ENGINEER: 01/23/19 0952 ADM IN [place] [address] [place] [address]
--- NOTE | 2019-01-25 08:51 | PN ---
PATIENT:CASSANDRA KEITH MEDICAL RECORD: [id number] LOCATION:[facility] ADMISSION DATE: 01/17/19 PROGRESS NOTE DATE OF SERVICE: 01/21/2019 SUBJECTIVE: Ms. Keith is a 73-year-old female who was admitted after claiming that a local physician was going to her, showing up at his house, driving detector came at least on 2 occasions, believing that he was going to meet her there. The patient lacks any insight into this behavior. She minimizes it, contradicts herself at multiple places. She sees no reasons for herself to be here, although did take Geodon reluctantly last night, she slept 10-1/2 hours, eating 75%, 100%, and 100% and last bowel movement on the . OBJECTIVE: VITAL SIGNS: 97.9, 56, 16, 176/69, and 98%. ASSESSMENT: Unchanged. PLAN: We will have Folstein done on the patient. CT head had mild cerebral atrophy. She did get general orientation questions right in the beginning; however, I suspect that with her underlying diathesis of mood disorders according to family and then some dementia, thought process has further exacerbated her mental instability. Case discussed with nursing, chart reviewed, and patient interviewed. TRANSINT:[id number] Voice Confirmation ID: [id number] DOCUMENT ID: [id number] WOOD RAMIREZ MD at 0851 CC: [id number] DICTATION DATE: 01/21/19 175 NON CATEGORICAL PRESCHOOL TEACHER: 01/22/19 0203 ADM IN [place] [place] [address]
--- NOTE | 2019-01-25 11:40 | NUR ---
B) The patient is bizarre, she is talking to herself, but she is able to stop herself and she is oriented x3. She said in front of this nurse to another patient "Oh, I'm just talking to myself and having a good time." The other patient said "Well, at least you can stop it." Yamila said "Oh, yea I can stop it when I want, I can control it." The patient continues to talk to her unseen others and she laughs and shows no distress. I) Provide prescribed meds. R) The patient is compliant with meds. P) Continue POC.
[2019-01-25 20:21] VITALS: BP 162/66
--- NOTE | 2019-01-26 07:30 | NUR ---
REC'D PT IN HALLWAY SOCIALIZING WITH PEERS. CALM AND COOPERATIVE WITH ASSESSMENT. REDIRECT AND REORIENT NEEDED. MED COMPLIANT. PT. TALKING TO UNSEEN OTHERS. FALL PRECAUTIONS IN PLACE. WILL CPOC.
[2019-01-26 08:00] VITALS: BP 164/68
--- NOTE | 2019-01-26 20:58 | NUR ---
RECEIVED IN DAYROOM. SITTING IN A CHAIR WITH PEERS AT HER SIDE. SOCIALIZING AT TIMES. REDIRECT AND REORIENT NEEDED. CONTINUES TO SIT CALMLY IN DAYROOM. CONTINUE PLAN OF CARE
[2019-01-26 23:51] VITALS: BP 148/66
--- NOTE | 2019-01-27 07:30 | NUR ---
REC'D PT IN HALLWAY SOCIALIZING WITH PEERS. ALERT AND ORIENTED X 3. CALM AND COOPERATIVE WITH ASSESSMENT. MED COMPLIANT. PT. NOTED TALKING TO UNSEEN OTHERS AT TIMES. REDIRECT AND REORIENT NEEDED. FALL PRECAUTIONS IN PLACE. WILL CPOC.
[2019-01-27 08:52] VITALS: BP 147/73
--- NOTE | 2019-01-27 14:53 | PN ---
PATIENT:CASSANDRA KEITH MEDICAL RECORD: [id number] LOCATION:[facility] Bullock ADMISSION DATE: 01/17/19 PROGRESS NOTE DATE OF SERVICE: 01/26/2019 SUBJECTIVE: The patient's case was discussed with staff. She has no new complaint. OBJECTIVE: The patient is partially oriented. She is having some ongoing psychotic symptoms and has been observed having a conversation with someone not present. ASSESSMENT: Bipolar disorder. PLAN: The patient will be treated with Depakote at a starting dose of 500 mg twice daily. Her long-term prognosis is guarded. TRANSINT:[id number] Voice Confirmation ID: [id number] DOCUMENT ID: [id number] JESSY BURRELL MD at 1453 CC: [id number] DICTATION DATE: 01/26/19 1539 INSTRUMENT LENS INSPECTOR: 01/26/19 1635 ADM IN [place] [address] [place] [address]
[2019-01-27 20:06] VITALS: BP 175/81
--- NOTE | 2019-01-28 04:10 | NUR ---
RECEIVED IN DAYROOM. WATCHING TV. CALM AND COOPERATIVE WITH CARE AND ASSESSMENT. NO DELUSIONAL STATEMENTS MADE. REDIRECT AND REORIENT NEEDED. RESTING IN BED WITH EYES CLOSED AT THIS TIME. CONTINUE PLAN OF CARE.
--- NOTE | 2019-01-28 07:30 | NUR ---
REC'D PT IN HALLWAY WITH PEERS. ALERT AND ORIENTED X 3. CALM AND COOPERATIVE WITH ASSESSMENT. PT CONTINUES TO TALK TO UNSEEN OTHERS. REDIRECT AND REORIENT NEEDED. MED COMPLIANT. FALL PRECAUTIONS IN PLACE. WILL CPOC.
[2019-01-28 08:32] VITALS: BP 168/53
--- NOTE | 2019-01-28 15:05 | PN ---
PATIENT:CASSANDRA KEITH MEDICAL RECORD: [id number] LOCATION:[facility]112 ADMISSION DATE: 01/17/19 PROGRESS NOTE DATE OF SERVICE: 01/27/2019 SUBJECTIVE: The patient's case was discussed with staff. She has no new complaint. OBJECTIVE: The patient tells me that she is not bipolar and that she has never had any kind of psychiatric care and that she has never had anything to do with Dr. Luther and never believed that she was his . She is very angry and tells me that this is all a pack of lies, but she is not saying it is some kind of organized conspiracy, she is simply cross examining me about who told me what and then just dismissing it as here say as though she were a head of academic technology and this is a court room instead of the hospital. The fact remains she is clearly behaving in a way that is mentally ill. There is no reason at all that Dr. Roy would call and say that she was having this kind of difficulty and she was quite bizarre when she came into the hospital. ASSESSMENT: Bipolar disorder. PLAN: I am going to maintain the patient on current medications. I will meet with the treatment team again tomorrow and see if I can confirm who has said she has a history of mental illness and has been treated in the past by psychiatrist. This is something she absolutely definitively denies. I think I am left with a big dilemma here and that she clearly is mentally ill and has benefited from the medication, but when she leaves the hospital, I doubt she will take it or go to follow up care. TRANSINT:[id number] Voice Confirmation ID: [id number] DOCUMENT ID: [id number] JESSY BURRELL MD at 1505 CC: [id number] DICTATION DATE: 01/27/19 1515 LOG SAWYER: 01/27/19 1524 ADM IN [place] [address] [place] [address]
--- NOTE | 2019-01-28 20:54 | NUR ---
RECEIVED IN BEDROOM. MED NURSE IN ROOM AT THIS TIME. CALM AND COOPERATIVE WITH CARE AND ASSESSMENT. NO DELUSIONAL STATEMENTS MADE THIS PM. REDIRECT AND REORIENT NEEDED. RESTING IN BED EYES OPEN AT THIS TIME. CONTINUE PLAN OF CARE
--- NOTE | 2019-01-29 08:15 | NUR ---
REC'D PT SITTING IN CHAIR IN HALLWAY AWAITING BREAKFAST. RESP EVEN AND NONLABORED. PT AAOX3. WITH SLIGHT CONFUSION AT TIMES. MED COMPLIANT. WILL CONT PLAN OF CARE.
[2019-01-29 08:31] VITALS: BP 148/84
--- NOTE | 2019-01-29 13:17 | PN ---
PATIENT:CASSANDRA KEITH MEDICAL RECORD: [id number] LOCATION:[facility]112 ADMISSION DATE: 01/17/19 PROGRESS NOTE DATE OF SERVICE: 01/28/2019 SUBJECTIVE: The patient's case was discussed with staff. She has no new complaint. OBJECTIVE: The patient is in good behavioral control. She has limited insight about her condition. She is tolerating her medicines well. ASSESSMENT: Bipolar disorder. PLAN: The patient continues to deny psychotic symptoms. She denies a psychiatric history. She is fully oriented. I am going to check a Depakote level and will anticipate she can be discharged soon. I am concerned about her long-term stability, I am virtually certain she is not going to continue taking psychiatric medications and in fact, inasmuch tells me so saying that she does not think she needs them, she does not have a mental illness and there is no reason for her to be here or to take these medicines. Interestingly, she does not demand to leave or even ask about leaving, which is strange, but at this point, there does not appear to be a good option for her. She is not demented or behaving in a grossly disorganized way that could allow her son to get guardianship. She is not threatening anyone or grossly disorganized, which indicates that she is not going to be eligible or meet criteria for a mental health commitment on an inpatient or outpatient basis and I suspect when she leaves she will stop taking her medicines and will quickly become delusional and manic again. I continued to advise her about this and she continues to argue with me that there is nothing wrong. TRANSINT:[id number] Voice Confirmation ID: [id number] DOCUMENT ID: [id number] JESSY BURRELL MD at 1317 CC: [id number] DICTATION DATE: 01/28/19 1545 OPERATOR WEAPON LOCATING RADAR: 01/28/19 1554 ADM IN [id number] [place] [address]
[2019-01-29] MEDS ORDERED: LISINOPRIL10 MG PO (16:44)
[2019-01-29] MEDS ORDERED: RISPERDAL1 MG PO (16:44)
[2019-01-29] MEDS ORDERED: DEPAKOTE500 MG PO (16:44)
[2019-01-29] MEDS ORDERED: METOPROLOL TART50 MG PO (16:44)
--- NOTE | 2019-01-29 19:12 | NUR ---
PT SITTING IN CHAIR WATCHING T.V. RESP EVEN AND NONLABORED. NO ACUTE DISTRESS NOTED. MED COMPLIANT. PT NOTED TALKING TO SELF AT TIMES. WILL RESPONSED TO ANSWERS. WILL CONT PLAN OF CARE.
--- NOTE | 2019-01-29 19:35 | NUR ---
RECEIVED IN PATIENT ROOM. GETTING READY FOR BED. CALM AND COOPERATIVE WITH CARE AND ASSESSMENT. NO DELUSIONAL OR GRANDIOSE STATEMENTS MADE. REDIRECT AND REORIENT NEEDED. SITTING ON SIDE OF BED AT THIS TIME. CONTINUE PLAN OF CARE.
--- NOTE | 2019-01-30 07:37 | NUR ---
REC'D PATIENT LAYING IN BED WITH EYES CLOSED. RESP EVEN AND NONLABORED. NO ACUTE DISTRESS NOTED. NO BEHAVIORS NOTED FROM PREVIOUS SHIFT. REORIENT TO SITUTION NEEDED. AMBULATES. MED COMPLIANT. WILL CONT PLAN OF CARE. CALL LIGHT IN REACH.
[2019-01-30 12:29] VITALS: BP 138/49
--- NOTE | 2019-01-30 13:47 | PN ---
PATIENT:CASSANDRA KEITH MEDICAL RECORD: [id number] LOCATION:K[facility]STYN Silke112 ADMISSION DATE: 01/17/19 PROGRESS NOTE DATE OF SERVICE: 01/29/2019 SUBJECTIVE: The patient's case was discussed with staff. She has no new complaints. OBJECTIVE: The patient is in good behavioral control. She has no overt psychotic symptoms. I did talk to her about her condition and told her flatly that I think she needs to take medications. She tells me that she will, although I do not believe she is going to and I do not believe she has been doing so here on a consistent basis and that is backed up by lab. I think her prognosis will be entirely contingent upon medication management, compliance, and followup. ASSESSMENT: Bipolar disorder. PLAN: The patient is not acutely dangerous. She is going to be transitioned out of the hospital tomorrow. Her long-term prognosis is guarded. Both supportive and educational interventions were made. TRANSINT:[id number] Voice Confirmation ID: [id number] DOCUMENT ID: [id number] JESSY BURRELL MD at 1347 CC: [id number] DICTATION DATE: 01/29/19 1643 SEX OFFENDER TREATMENT PROFESSIONAL: 01/29/19 [address] [facility] [address] [place] [address]
--- NOTE | 2019-01-30 13:55 | NUR ---
PATIENT DISCHARGED WITH SON DENICE SIDHU TO HOME. PT CAME TO THE DOOR AND STATED "OH YOUR TAKING ME? I'M LEAVING WITH YOU? THERE ISN'T ANYONE ELSE WITH YOU?" NURSE EXPLAINED THE PLAN WAS HER SON TO PICK HER UP AT DISCHARGE. THAT WAS THE SAFE PLAN. PATIENT DID NOT REPLAY. THIS NURSE EXPLAINED TO SON ABOUT THE DOCTOR APPOINTMENT AND THE MEDICATIONS WERE FAXED TO THE PHARMACY. SON VERBALIZED UNDERSTANDING TO PLANS AND ORDERS. PATIENT DISCHARGED TO HOME. ALL BELONGINGS GIVEN TO PATIENT AND SON UPON DISCHARGED.
--- NOTE | 2019-01-31 14:15 | PN ---
PATIENT:CASSANDRA KEITH MEDICAL RECORD: [id number] LOCATION:[facility]IN[facility]ouard112 ADMISSION DATE: 01/17/19 PROGRESS NOTE DATE OF SERVICE: 01/30/2019 SUBJECTIVE: The patient's case was discussed with staff. She has no new complaint. OBJECTIVE: The patient is in good behavioral control with limited insight about her condition. She does tolerate her medicines well. Eye contact is fair. ASSESSMENT: No change in diagnoses. PLAN: Brief supportive and educational interventions were made. Long-term prognosis is guarded. I anticipate she can be transitioned out of the hospital today. Follow up is to be with her primary care physician and the [facility]. At this time, she is not delusional. She does not believe that she is Mrs. Howard Luther. She is tolerating her medicines and I think that she has a good prognosis if she will continue to take her medicines. TRANSINT:[id number] Voice Confirmation ID: [id number] DOCUMENT ID: [id number] JESSY BURRELL MD at 1415 CC: [id number] DICTATION DATE: 01/30/19 1528 ARTIFICIAL FLOWERS SUPERVISOR: 01/30/192020 DIS IN 01/30/19 [facility] [address] [place] [address]
== END 2019-01-30 13:20 | disposition home or self-care (01) | DRG 885 ==
LOC: D.ER 13:28 → D.PSYCH 19:00
PROVIDERS: Family Medicine; ADMIT Psychiatry & Neurology Psychiatry; ATTEND Psychiatry & Neurology Psychiatry
DX: F31.2 Bipolar disorder, current episode manic severe with psychotic features (principal); I10 Essential (primary) hypertension; I65.29 Occlusion and stenosis of unspecified carotid artery; E78.5 Hyperlipidemia, unspecified; Z78.0 Asymptomatic menopausal state; E55.9 Vitamin D deficiency, unspecified